=== PATIENT | female | born 1965 | race Caucasian/White ===

== ENCOUNTER → 2017-10-14 | Outpatient (CLI) | payer MEDICAID ==
[~2017-10-14] MED LIST: CIPRO 500MG TA500 MG PO; MOTRIN600 MG PO; NAPROSYN 500MG500 MG PO; PERCOCET 5/3251 EACH PO; PHENERGAN 25MG.25 M1 PO
[2017-10-14 16:38] LABS: BUN 21 mg/dL (7-18)
[2017-10-14 16:45] LABS: GFR (ESTIMATED) 66 ML/MIN (59-)
[2017-10-14 17:07] LABS: LYMPH # 1.6 K/mm3 (0.7-4.5); LYMPH % 34.2 % (10-50.0)
[2017-10-16 07:37] LABS: HBsAg Screen Negative (Negative); Hep A Ab, IgM Negative (Negative); Hep B Core Ab, IgM Negative (Negative); Hep C Virus Ab 0.1 (0.0-0.9)
[2017-10-16 08:40] LABS: RA Latex Turbid. <10.0 IU/mL (0.0-13.9)
[2017-10-18 03:36] LABS: CCP Antibodies IgG/IgA 144 units (0-19)
== END ==
LOC: LAB 15:08
PROVIDERS: Nurse Practitioner Family
DX: M25.561 Pain in right knee (principal); M25.571 Pain in right ankle and joints of right foot; J45.20 Mild intermittent asthma, uncomplicated; K59.00 Constipation, unspecified; Z00.00 Encounter for general adult medical examination without abnormal findings